=== PATIENT | female | born 2000 | race Caucasian/White ===

== ENCOUNTER 2022-12-31 18:45 | Inpatient (IN) | payer BC ==
[~2022-12-31] VITALS: Ht 177.8 cm; Wt 158.8 kg
[2022-12-31] MEDS ORDERED: HYDROXYZINE HCL10 MG PO (21:57)
[2022-12-31] MEDS ORDERED: TRILEPTAL150 MG PO (21:57)
[2022-12-31 22:00] VITALS: BP 133/97
[2022-12-31] MEDS ORDERED: ACETAMINOPHEN 325 MG TAB PO PRN (22:00)
[2022-12-31] MEDS ORDERED: MELATONIN 3 MG TAB PO PRN (22:00)
[2022-12-31] MEDS ORDERED: HYDROXYZINE HCL 10 MG TAB PO PRN (22:00)
[2022-12-31 22:06] VITALS: BP 133/96
[2023-01-01] VITALS (10 sets, daily range): BP systolic 103–147; BP diastolic 49–96
[2023-01-01 07:48] LABS: BASOPHILS % 0.6 % (0.0-1.0); EOSINOPHILS # (AUTO) 0.1 (0.0-0.4); EOSINOPHILS % 1.6 % (0.0-6.0); HEMOGLOBIN 11.6 g/dL (12.0-16.0); LYMPHOCYTES # (AUTO) 2.4 (1.0-3.2); LYMPHOCYTES % 34.2 % (18.0-39.1); MONOCYTES # (AUTO) 0.6 (0.2-0.8); MONOCYTES % 8.3 % (4.4-11.3); NEUTROPHILS # (AUTO) 3.8 (2.1-6.9); NEUTROPHILS % 55.3 % (38.7-80.0); PLATELET COUNT 316 x10e3/uL (140-360); RED CELL DISTRIBUTION WIDTH 14.3 % (11.7-14.4)
[2023-01-01 08:19] LABS: ANION GAP 11.1 mmol/L (8-16); CALCIUM 8.7 mg/dL (8.4-10.2); CREATININE, SERUM 0.69 mg/dL (0.57-1.11); POTASSIUM 4.1 mmol/L (3.5-5.1)
[2023-01-01] MEDS: SODIUM CHLORIDE 0.9% 1000ML 1,000 ML IV SCH ×2 (09:16→17:04)
[2023-01-01 09:21] LABS: FREE T4 (FREE THYROXINE) 0.78 ng/dL (0.8-1.8); THYROID STIMULATING HORMONE 2.399 uIU/mL (0.350-4.940)
[2023-01-01] MEDS ORDERED: METOPROLOL SUCCINATE 50 MG TAB XL PO ONE (10:00)
[2023-01-01] MEDS: OXCARBAZEPINE 300 MG TAB PO SCH ×2 (11:18→17:04)
[2023-01-01 18:42] LABS: FERRITIN 17.59 ng/mL (4.63-204.00)
[2023-01-02] VITALS (15 sets, daily range): BP systolic 96–164; BP diastolic 58–96
[2023-01-02 05:32] LABS: BASOPHILS % 0.7 % (0.0-1.0); EOSINOPHILS # (AUTO) 0.1 (0.0-0.4); EOSINOPHILS % 1.4 % (0.0-6.0); HEMATOCRIT 38.4 % (34.2-44.1); LYMPHOCYTES # (AUTO) 1.9 (1.0-3.2); LYMPHOCYTES % 32.9 % (18.0-39.1); MEAN CORPUSCULAR HEMOGLOBIN 26.8 pg (28-32); MEAN CORPUSCULAR HGB CONC 28.6 g/dL (31-35); MEAN CORPUSCULAR VOLUME 93.7 fL (81-99); MONOCYTES # (AUTO) 0.4 (0.2-0.8); MONOCYTES % 7.5 % (4.4-11.3); NEUTROPHILS # (AUTO) 3.4 (2.1-6.9); NEUTROPHILS % 57.2 % (38.7-80.0); PLATELET COUNT 285 x10e3/uL (140-360); RED CELL DISTRIBUTION WIDTH 13.8 % (11.7-14.4)
[2023-01-02] MEDS: SODIUM CHLORIDE 0.9% 1000ML 1,000 ML IV SCH ×3 (05:50→23:30)
[2023-01-02 05:56] LABS: ANION GAP 10.9 mmol/L (8-16); CALCIUM 8.7 mg/dL (8.4-10.2); CREATININE, SERUM 0.72 mg/dL (0.57-1.11); POTASSIUM 3.9 mmol/L (3.5-5.1)
[2023-01-02] MEDS: OXCARBAZEPINE 300 MG TAB PO SCH ×2 (08:38→18:29)
[2023-01-02] MEDS: IRON SUCROSE 100 MG in SODIUM CHLORIDE 0.9% 100 ML IV SCH (10:08)
[2023-01-02] MEDS ORDERED: HEPARIN SOD (PORCINE) 1000 UNIT/ML 30ML ONE (16:22)
[2023-01-02] MEDS ORDERED: HEPARIN SOD/SOD CHLORIDE 2,000 ML ONE (16:23)
[2023-01-02] MEDS ORDERED: LIDOCAINE HCL 2% LOCAL 20 ML VIAL ONE (16:23)
[2023-01-02] MEDS ORDERED: IOPAMIDOL 370 MG/ML 100 ML INFUS..BTL INJ ONE ×2 (16:23→19:22)
[2023-01-02] MEDS ORDERED: SODIUM CHLORIDE 0.9% 1000ML 1,000 ML ONE (16:23)
[2023-01-02] MEDS ORDERED: NITROGLYCERIN/D5W 200 MCG/ML 250 ML ONE (16:24)
[2023-01-02] MEDS ORDERED: VERAPAMIL HCL 2.5 MG/ML 2 ML VIAL ONE (16:25)
[2023-01-02] MEDS ORDERED: MIDAZOLAM HCL 2 MG/2 ML VIAL ONE (16:25)
[2023-01-02] MEDS ORDERED: FENTANYL CITRATE/PF 100MCG/2 ML INJ ONE (16:26)
[2023-01-02] MEDS ORDERED: SODIUM CHLORIDE 0.9% 100 ML ONE (19:22)
[2023-01-02] MEDS ORDERED: SENNA-S TABLET PO SCH (21:00)
[2023-01-03 01:34] VITALS: BP 89/60
[2023-01-03 06:00] VITALS: BP 126/83
[2023-01-03 06:10] LABS: BASOPHILS % 0.7 % (0.0-1.0); EOSINOPHILS # (AUTO) 0.1 (0.0-0.4); EOSINOPHILS % 1.3 % (0.0-6.0); HEMOGLOBIN 11.5 g/dL (12.0-16.0); LYMPHOCYTES # (AUTO) 1.8 (1.0-3.2); LYMPHOCYTES % 30.3 % (18.0-39.1); MEAN CORPUSCULAR HEMOGLOBIN 26.9 pg (28-32); MEAN CORPUSCULAR HGB CONC 31.1 g/dL (31-35); MEAN CORPUSCULAR VOLUME 86.4 fL (81-99); MONOCYTES # (AUTO) 0.6 (0.2-0.8); MONOCYTES % 9.2 % (4.4-11.3); NEUTROPHILS # (AUTO) 3.5 (2.1-6.9); NEUTROPHILS % 58.2 % (38.7-80.0); PLATELET COUNT 292 x10e3/uL (140-360); RED BLOOD COUNT 4.28 x10e6/uL (3.6-5.1); RED CELL DISTRIBUTION WIDTH 14.2 % (11.7-14.4)
[2023-01-03 06:30] LABS: ANION GAP 12.2 mmol/L (8-16); CALCIUM 8.6 mg/dL (8.4-10.2); CREATININE, SERUM 0.62 mg/dL (0.57-1.11); POTASSIUM 4.2 mmol/L (3.5-5.1)
[2023-01-03 08:04] VITALS: BP 100/64
[2023-01-03 09:00] VITALS: BP 100/62
[2023-01-03] MEDS ORDERED: METOPROLOL SUCCINATE 25 MG TAB XL PO SCH (09:00)
[2023-01-03] MEDS ORDERED: METOPROLOL SUCCINATE 50 MG TAB XL PO SCH (09:00)
[2023-01-03] MEDS: IRON SUCROSE 100 MG in SODIUM CHLORIDE 0.9% 100 ML IV SCH (09:13)
[2023-01-03] MEDS: SODIUM CHLORIDE 0.9% 1000ML 1,000 ML IV SCH (09:15)
[2023-01-03] MEDS ORDERED: OXCARBAZEPINE 300 MG TAB PO SCH (10:00)
[2023-01-03] MEDS ORDERED: SENNA S TABLET1 EACH PO (10:27)
[2023-01-03] MEDS ORDERED: TOPROL XL50 MG PO (10:27)
[2023-01-03] MEDS ORDERED: FERROUS SULFAT325 M1 PO (10:27)
== END 2023-01-03 11:24 | disposition home or self-care (01) | DRG 287 ==
LOC: MED/SURG2 21:05 → OBSVTOIN 01-02 15:59
PROVIDERS: ADMIT Family Medicine Adult Medicine; ATTEND Family Medicine Adult Medicine
PROC: 4A023N6 Measurement of Cardiac Sampling and Pressure, Right Heart, Percutaneous Approach (ICD-10-PCS; principal; 2023-01-02)
DX: R55 Syncope and collapse (principal); N39.0 Urinary tract infection, site not specified; Z68.43 Body mass index [BMI] 50.0-59.9, adult; I47.1 Supraventricular tachycardia; K76.0 Fatty (change of) liver, not elsewhere classified; D50.9 Iron deficiency anemia, unspecified; F31.9 Bipolar disorder, unspecified; E66.01 Morbid (severe) obesity due to excess calories; F41.9 Anxiety disorder, unspecified; J45.909 Unspecified asthma, uncomplicated; G47.33 Obstructive sleep apnea (adult) (pediatric)
CPT/HCPCS: 36415; 71275; 80048; 82088; 82607; 82728; 82746; 82948; 83540; 84439; 84443; 84466; 84702; 85025; 93306; 93451; 96360; C1751; C1769; G0378; J1644; J1756; J2001; J2250; J3010; J7030; J7050; Q9967